=== PATIENT | female | born 1955 | race Caucasian/White ===

== ENCOUNTER → 2023-11-23 12:06 | Outpatient (REF) | payer MEDICARE, OTHER, SELFPAY ==
[2023-11-23 13:53] LABS: INR 2.65; PT 28.6 Sec (11.4-14.6)
== END ==
LOC: REG 12:06
PROVIDERS: ATTENDING PHYSICIAN Internal Medicine Cardiovascular Disease; FAMILY PHYSICIAN Family Medicine
DX: I48.0 Paroxysmal atrial fibrillation (principal); I48.91 Unspecified atrial fibrillation
CPT/HCPCS: 36415; 85610

== ENCOUNTER → 2023-12-15 09:10 | Outpatient (REF) | payer MEDICARE, OTHER, SELFPAY ==
[2023-12-15 10:41] LABS: INR 1.91; PT 21.7 Sec (11.4-14.6)
== END ==
LOC: REG 09:10
PROVIDERS: ATTENDING PHYSICIAN Internal Medicine Cardiovascular Disease; FAMILY PHYSICIAN Family Medicine
DX: I48.0 Paroxysmal atrial fibrillation (principal)
CPT/HCPCS: 36415; 85610

== ENCOUNTER → 2023-12-19 13:56 | Outpatient (REF) | payer MEDICARE, OTHER, SELFPAY | LOC: WDC 13:56 | PROVIDERS: ATTENDING PHYSICIAN Student in an Organized Health Care Education/Training Program | DX: R92.8 Other abnormal and inconclusive findings on diagnostic imaging of breast (principal) | CPT/HCPCS: 77061; 77065 ==

== ENCOUNTER → 2024-01-05 14:10 | Outpatient (REF) | payer MEDICARE, OTHER, SELFPAY | LOC: RAD 14:10 | PROVIDERS: ATTENDING PHYSICIAN Student in an Organized Health Care Education/Training Program | DX: R05.9 Cough, unspecified (principal) | CPT/HCPCS: 71046 ==

== ENCOUNTER → 2024-01-29 09:42 | Outpatient (REF) | payer MEDICARE, OTHER, SELFPAY ==
[2024-01-29 10:31] LABS: INR 1.91; PT 21.8 Sec (11.4-14.6)
== END ==
LOC: REG 09:42
PROVIDERS: ATTENDING PHYSICIAN Internal Medicine Cardiovascular Disease; FAMILY PHYSICIAN Family Medicine
DX: I48.0 Paroxysmal atrial fibrillation (principal); I48.91 Unspecified atrial fibrillation
CPT/HCPCS: 36415; 85610

== ENCOUNTER → 2024-02-13 10:26 | Outpatient (REF) | payer MEDICARE, OTHER, SELFPAY ==
[2024-02-13 11:33] LABS: INR 2.94; PT 30.6 Sec (11.4-14.6)
== END ==
LOC: REG 10:26
PROVIDERS: ATTENDING PHYSICIAN Student in an Organized Health Care Education/Training Program; FAMILY PHYSICIAN Family Medicine; REFERRING PHYSICIAN Internal Medicine Cardiovascular Disease
DX: I48.0 Paroxysmal atrial fibrillation (principal); R35.0 Frequency of micturition; R39.15 Urgency of urination
CPT/HCPCS: 36415; 85610

== ENCOUNTER → 2024-02-28 10:05 | Outpatient (REF) | payer MEDICARE, OTHER, SELFPAY ==
[2024-02-28 11:17] LABS: INR 2.13; PT 24.1 Sec (11.4-14.6)
[2024-02-28 11:21] LABS: Urine Albumin Negative (Neg - Trace); Urine Bilirubin Negative (Negative); Urine Character Clear (Clear); Urine Color Yellow; Urine Glucose Negative (Negative); Urine Ketone Negative (Negative); Urine Leukocyte 2+ (Negative); Urine Nitrite Negative (Negative); Urine Occult Blood Negative (Negative); Urine Urobilinogen Negative (Neg - 1+); Urine pH 6.5 (5.0-9.0)
[2024-02-28 12:02] LABS: HDL Cholesterol 71 mg/dl; LDL Cholesterol, Calculated 89 mg/dl; Total Cholesterol 188 mg/dl (50-199); Triglyceride 140 mg/dl (10-149); Very Low Density Lipoprotein 28 mg/dl (0-30)
[2024-02-28 12:17] LABS: Urine Squamous Cell >30 /LPF (Few)
[2024-02-28 12:18] LABS: Urine Red Blood Cell 0-2 /HPF (0-2)
== END ==
LOC: REG 10:05
PROVIDERS: ATTENDING PHYSICIAN Internal Medicine Cardiovascular Disease; FAMILY PHYSICIAN Family Medicine
DX: I48.0 Paroxysmal atrial fibrillation (principal); R35.0 Frequency of micturition; E78.2 Mixed hyperlipidemia
CPT/HCPCS: 36415; 80061; 81003; 81015; 85610; 87086

== ENCOUNTER → 2024-03-12 10:34 | Outpatient (REF) | payer MEDICARE, OTHER, SELFPAY ==
[2024-03-12 11:43] LABS: INR 1.63; PT 19.2 Sec (11.4-14.6)
== END ==
LOC: REG 10:34
PROVIDERS: ATTENDING PHYSICIAN Internal Medicine Cardiovascular Disease; FAMILY PHYSICIAN Student in an Organized Health Care Education/Training Program
DX: I48.0 Paroxysmal atrial fibrillation (principal)
CPT/HCPCS: 36415; 85610

== ENCOUNTER → 2024-03-22 10:58 | Outpatient (REF) | payer MEDICARE, OTHER, SELFPAY ==
[2024-03-22 12:14] LABS: INR 2.98; PT 30.9 Sec (11.4-14.6)
== END ==
LOC: REG 10:58
PROVIDERS: ATTENDING PHYSICIAN Internal Medicine Cardiovascular Disease; FAMILY PHYSICIAN Internal Medicine Cardiovascular Disease
DX: I48.0 Paroxysmal atrial fibrillation (principal)
CPT/HCPCS: 36415; 85610

== ENCOUNTER → 2024-04-05 10:14 | Outpatient (REF) | payer MEDICARE, OTHER, SELFPAY ==
[2024-04-05 11:13] LABS: INR 3.12
== END ==
LOC: REG 10:14
PROVIDERS: ATTENDING PHYSICIAN Internal Medicine Cardiovascular Disease; FAMILY PHYSICIAN Family Medicine
DX: I48.0 Paroxysmal atrial fibrillation (principal)
CPT/HCPCS: 36415; 85610

== ENCOUNTER → 2024-04-23 07:03 | Outpatient (REF) | payer MEDICARE, OTHER, SELFPAY ==
[2024-04-23 07:37] LABS: INR 3.03; PT 31.3 Sec (11.4-14.6)
== END ==
LOC: REG 07:03
PROVIDERS: ATTENDING PHYSICIAN Internal Medicine Cardiovascular Disease
DX: I48.0 Paroxysmal atrial fibrillation (principal)
CPT/HCPCS: 36415; 85610

== ENCOUNTER → 2024-05-23 16:57 | Outpatient (REF) | payer MEDICARE, OTHER, SELFPAY ==
[2024-05-23 17:51] LABS: INR 3.07; PT 32.2 Sec (11.4-14.6)
== END ==
LOC: REG 16:57
PROVIDERS: ATTENDING PHYSICIAN Internal Medicine Cardiovascular Disease; FAMILY PHYSICIAN Family Medicine
DX: I48.0 Paroxysmal atrial fibrillation (principal)
CPT/HCPCS: 36415; 85610

== ENCOUNTER → 2024-06-24 13:48 | Outpatient (REF) | payer MEDICARE, OTHER, SELFPAY ==
[2024-06-24 14:48] LABS: INR 2.38; PT 25.9 Sec (11.4-14.6)
== END ==
LOC: REG 13:48
PROVIDERS: ATTENDING PHYSICIAN Internal Medicine Cardiovascular Disease; FAMILY PHYSICIAN Family Medicine
DX: I48.0 Paroxysmal atrial fibrillation (principal)
CPT/HCPCS: 36415; 85610

== ENCOUNTER → 2024-07-24 08:16 | Outpatient (REF) | payer MEDICARE, OTHER, SELFPAY | LOC: HWWDC 08:16 | PROVIDERS: ATTENDING PHYSICIAN Student in an Organized Health Care Education/Training Program; REFERRING PHYSICIAN Surgery | DX: Z12.31 Encounter for screening mammogram for malignant neoplasm of breast (principal) | CPT/HCPCS: 77063; 77067 ==

== ENCOUNTER → 2024-07-25 08:13 | Outpatient (REF) | payer MEDICARE, OTHER, SELFPAY ==
[2024-07-25 09:50] LABS: INR 3.58; PT 36.3 Sec (11.4-14.6)
== END ==
LOC: REG 08:13
PROVIDERS: ATTENDING PHYSICIAN Internal Medicine Cardiovascular Disease; FAMILY PHYSICIAN Family Medicine
DX: I48.0 Paroxysmal atrial fibrillation (principal)
CPT/HCPCS: 36415; 85610

== ENCOUNTER → 2024-07-31 10:16 | Outpatient (REF) | payer MEDICARE, OTHER, SELFPAY ==
[2024-07-31 10:56] LABS: % Basophils 0.5 % (0-2); % Eosinophils 2.7 % (0-6); % Immature Granulocytes 0.3 % (0-0.5); % Lymphocytes 25.6 % (20.5-51.1); % Monocytes 10.4 % (1.7-9.3); % Neutrophils 60.5 % (42.2-75.2); Absolute Eosinophils 0.2 10^3/uL (0-0.7); Absolute Lymphocytes 1.5 10^3/uL (1.2-3.4); Absolute Monocytes 0.6 10^3/uL (0.1-0.6); Absolute Neutrophils 3.6 10^3/uL (1.4-6.5); Hemoglobin 14.4 g/dL (12.0-16.0); Mean Corp Hgb Conc. 33.5 g/dL (33.0-37.0); Mean Corpuscular Hgb 32.7 pg (27.0-31.0); Mean Corpuscular Volume 97.7 fL (81.0-99.0); Mean Platelet Volume 9.8 fL (7.4-10.4); Nucleated Red Blood Cells % 0 %; Platelet Count 245 10^3/uL (130-400); Red Cell Dist. Width 12.5 % (11.5-14.5)
[2024-07-31 11:21] LABS: PT 18.3 Sec (11.4-14.6)
[2024-07-31 11:35] LABS: INR 1.51
[2024-07-31 11:37] LABS: ALT (SGPT) 23 U/L (0-35); AST (SGOT) 32 U/L (14-36); Albumin 4.2 g/dl (3.5-5.0); Alkaline Phosphatase 85 U/L (38-126); Blood Urea Nitrogen 12 mg/dl (7-17); Calcium 9.4 mg/dl (8.4-10.2); Carbon Dioxide 28 mmol/L (22-30); Chloride 99 mmol/L (98-107); Glucose 117 mg/dl (70-99); Potassium 4.8 mmol/L (3.5-5.1); Sodium 139 mmol/L (135-145); Total Bilirubin 0.8 mg/dl (0.2-1.3); Total Protein 6.9 g/dl (6.3-8.2); eGFR > 60.00
[2024-07-31 11:54] LABS: TSH Reflex To Free T4 4.24 uIU/ml (0.47-4.68)
== END ==
LOC: REG 10:16
PROVIDERS: ATTENDING PHYSICIAN Internal Medicine Cardiovascular Disease; FAMILY PHYSICIAN Family Medicine
DX: I48.0 Paroxysmal atrial fibrillation (principal); R60.0 Localized edema; E78.2 Mixed hyperlipidemia; Q24.5 Malformation of coronary vessels; Z78.9 Other specified health status; Z98.890 Other specified postprocedural states; Z86.79 Personal history of other diseases of the circulatory system
CPT/HCPCS: 36415; 80053; 84443; 85025; 85610

== ENCOUNTER → 2024-08-02 07:31 | Outpatient (REF) | payer MEDICARE, OTHER, SELFPAY | LOC: HWRCS 07:31 | PROVIDERS: ATTENDING PHYSICIAN Internal Medicine Cardiovascular Disease; FAMILY PHYSICIAN Student in an Organized Health Care Education/Training Program | DX: R60.0 Localized edema (principal); I48.0 Paroxysmal atrial fibrillation; I10 Essential (primary) hypertension | CPT/HCPCS: 93306 ==

== ENCOUNTER → 2024-08-13 07:49 | Outpatient (REF) | payer MEDICARE, OTHER, SELFPAY ==
[2024-08-13 09:55] LABS: INR 2.27; PT 24.9 Sec (11.4-14.6)
== END ==
LOC: REG 07:49
PROVIDERS: ATTENDING PHYSICIAN Internal Medicine Cardiovascular Disease; FAMILY PHYSICIAN Family Medicine
DX: I48.0 Paroxysmal atrial fibrillation (principal)
CPT/HCPCS: 36415; 85610

== ENCOUNTER → 2024-08-30 09:48 | Outpatient (REF) | payer MEDICARE, OTHER, SELFPAY ==
[2024-08-30 11:54] LABS: INR 1.75; PT 20.7 Sec (11.4-14.6)
[2024-08-30 12:05] LABS: Glycohemoglobin (HgbA1c) 5.9 % (4.0-5.6)
== END ==
LOC: REG 09:48
PROVIDERS: ATTENDING PHYSICIAN Internal Medicine Cardiovascular Disease; REFERRING PHYSICIAN Student in an Organized Health Care Education/Training Program
DX: I48.0 Paroxysmal atrial fibrillation (principal); R73.9 Hyperglycemia, unspecified
CPT/HCPCS: 36415; 83036; 85610

== ENCOUNTER → 2024-09-19 08:03 | Outpatient (REF) | payer MEDICARE, OTHER, SELFPAY | LOC: RAD 08:03 | PROVIDERS: ATTENDING PHYSICIAN Internal Medicine Cardiovascular Disease; FAMILY PHYSICIAN Family Medicine | DX: R60.0 Localized edema (principal) | CPT/HCPCS: 93970 ==

== ENCOUNTER → 2024-09-27 08:46 | Outpatient (REF) | payer MEDICARE, OTHER, SELFPAY ==
[2024-09-27 09:44] LABS: PT 24.5 Sec (11.4-14.6)
== END ==
LOC: REG 08:46
PROVIDERS: ATTENDING PHYSICIAN Internal Medicine Cardiovascular Disease; FAMILY PHYSICIAN Family Medicine
DX: I48.0 Paroxysmal atrial fibrillation (principal)
CPT/HCPCS: 36415; 85610

== ENCOUNTER → 2024-10-29 13:23 | Outpatient (REF) | payer MEDICARE, OTHER, SELFPAY ==
[2024-10-29 14:52] LABS: INR 2.25; PT 24.9 Sec (11.4-14.6)
== END ==
LOC: REG 13:23
PROVIDERS: ATTENDING PHYSICIAN Internal Medicine Cardiovascular Disease
DX: I48.0 Paroxysmal atrial fibrillation (principal)
CPT/HCPCS: 36415; 85610

== ENCOUNTER → 2024-11-27 15:38 | Outpatient (REF) | payer MEDICARE, OTHER, SELFPAY ==
[2024-11-27 16:40] LABS: INR 3.64; PT 36.5 Sec (11.4-14.6)
== END ==
LOC: REG 15:38
PROVIDERS: ATTENDING PHYSICIAN Internal Medicine Cardiovascular Disease; FAMILY PHYSICIAN Family Medicine
DX: I48.0 Paroxysmal atrial fibrillation (principal)
CPT/HCPCS: 36415; 85610

== ENCOUNTER → 2024-12-06 11:50 | Outpatient (REF) | payer MEDICARE, OTHER, SELFPAY ==
[2024-12-06 12:44] LABS: INR 3.28; PT 33.2 Sec (11.4-14.6)
== END ==
LOC: REG 11:50
PROVIDERS: ATTENDING PHYSICIAN Internal Medicine Cardiovascular Disease; FAMILY PHYSICIAN Family Medicine
DX: I48.0 Paroxysmal atrial fibrillation (principal)
CPT/HCPCS: 36415; 85610

== ENCOUNTER → 2024-12-17 10:50 | Outpatient (REF) | payer MEDICARE, OTHER, SELFPAY ==
[2024-12-17 11:55] LABS: INR 1.36
== END ==
LOC: REG 10:50
PROVIDERS: ATTENDING PHYSICIAN Internal Medicine Cardiovascular Disease; FAMILY PHYSICIAN Family Medicine
DX: I48.0 Paroxysmal atrial fibrillation (principal)
CPT/HCPCS: 36415; 85610

== ENCOUNTER → 2024-12-25 11:40 | Outpatient (REF) | payer MEDICARE, OTHER, SELFPAY ==
[2024-12-25 17:56] LABS: INR 1.62; PT 19.8 Sec (11.4-14.6)
== END ==
LOC: REG 11:40
PROVIDERS: ATTENDING PHYSICIAN Internal Medicine Cardiovascular Disease
DX: I48.0 Paroxysmal atrial fibrillation (principal)
CPT/HCPCS: 36415; 85610

== ENCOUNTER → 2025-01-03 12:51 | Outpatient (REF) | payer MEDICARE, OTHER, SELFPAY ==
[2025-01-03 13:40] LABS: PT 27.8 Sec (11.4-14.6)
== END ==
LOC: REG 12:51
PROVIDERS: ATTENDING PHYSICIAN Internal Medicine Cardiovascular Disease; FAMILY PHYSICIAN Family Medicine
DX: I48.0 Paroxysmal atrial fibrillation (principal)
CPT/HCPCS: 36415; 85610

== ENCOUNTER → 2025-01-17 11:16 | Outpatient (REF) | payer MEDICARE, OTHER, SELFPAY ==
[2025-01-17 12:34] LABS: INR 2.39; PT 26.1 Sec (11.4-14.6)
== END ==
LOC: REG 11:16
PROVIDERS: ATTENDING PHYSICIAN Internal Medicine Cardiovascular Disease; FAMILY PHYSICIAN Family Medicine
DX: I48.0 Paroxysmal atrial fibrillation (principal)
CPT/HCPCS: 36415; 85610

== ENCOUNTER → 2025-01-30 11:54 | Outpatient (REF) | payer MEDICARE, OTHER, SELFPAY ==
[2025-01-30 12:55] LABS: PT 20.5 Sec (11.4-14.6)
== END ==
LOC: REG 11:54
PROVIDERS: ATTENDING PHYSICIAN Internal Medicine Cardiovascular Disease; FAMILY PHYSICIAN Family Medicine
DX: I48.0 Paroxysmal atrial fibrillation (principal)
CPT/HCPCS: 36415; 85610

== ENCOUNTER → 2025-03-12 07:52 | Outpatient (REF) | payer MEDICARE, OTHER, SELFPAY ==
[2025-03-12 09:05] LABS: INR 3.16; PT 32.8 Sec (11.4-14.6)
[2025-03-12 09:06] LABS: APTT 58.2 Sec (23.4-35.0)
[2025-03-12 09:37] LABS: ALT (SGPT) 25 U/L (0-35); AST (SGOT) 29 U/L (14-36); Alkaline Phosphatase 91 U/L (38-126); Blood Urea Nitrogen 15 mg/dl (7-17); Calcium 8.9 mg/dl (8.4-10.2); Carbon Dioxide 27 mmol/L (22-30); Chloride 106 mmol/L (98-107); Glucose 109 mg/dl (70-99); HDL Cholesterol 55 mg/dl; LDL Cholesterol, Calculated 88 mg/dl; Potassium 4.7 mmol/L (3.5-5.1); Sodium 140 mmol/L (135-145); Total Bilirubin 0.5 mg/dl (0.2-1.3); Total Cholesterol 176 mg/dl (50-199); Total Protein 6.5 g/dl (6.3-8.2); Triglyceride 167 mg/dl (10-149); Very Low Density Lipoprotein 33 mg/dl (0-30); eGFR > 60.00
[2025-03-12 10:00] LABS: Glycohemoglobin (HgbA1c) 5.9 % (4.0-5.6)
== END ==
LOC: REG 07:52
PROVIDERS: ATTENDING PHYSICIAN Internal Medicine Cardiovascular Disease; FAMILY PHYSICIAN Student in an Organized Health Care Education/Training Program
DX: I48.0 Paroxysmal atrial fibrillation (principal); I10 Essential (primary) hypertension; G25.0 Essential tremor; E78.2 Mixed hyperlipidemia; Z79.01 Long term (current) use of anticoagulants; E66.811 Obesity, class 1; R73.03 Prediabetes
CPT/HCPCS: 36415; 80053; 80061; 83036; 85610; 85730

== ENCOUNTER → 2025-03-19 08:36 | Outpatient (REF) | payer MEDICARE, OTHER, SELFPAY ==
[2025-03-19 09:23] LABS: INR 2.14; PT 24.4 Sec (11.4-14.6)
== END ==
LOC: REG 08:36
PROVIDERS: ATTENDING PHYSICIAN Internal Medicine Cardiovascular Disease; FAMILY PHYSICIAN Family Medicine
DX: I48.0 Paroxysmal atrial fibrillation (principal)
CPT/HCPCS: 36415; 85610

== ENCOUNTER → 2025-04-03 06:52 | Outpatient (REF) | payer MEDICARE, OTHER, SELFPAY ==
[2025-04-03 07:23] LABS: PT 26.6 Sec (11.4-14.6)
== END ==
LOC: REG 06:52
PROVIDERS: ATTENDING PHYSICIAN Internal Medicine Cardiovascular Disease; FAMILY PHYSICIAN Family Medicine
DX: I48.0 Paroxysmal atrial fibrillation (principal)
CPT/HCPCS: 36415; 85610

== ENCOUNTER → 2025-04-28 07:06 | Outpatient (REF) | payer MEDICARE, OTHER, SELFPAY ==
[2025-04-28 08:21] LABS: INR 3.41; PT 34.2 Sec (11.4-14.6)
== END ==
LOC: REG 07:06
PROVIDERS: ATTENDING PHYSICIAN Internal Medicine Cardiovascular Disease; FAMILY PHYSICIAN Family Medicine
DX: I48.0 Paroxysmal atrial fibrillation (principal)
CPT/HCPCS: 36415; 85610

== ENCOUNTER → 2025-05-21 07:54 | Outpatient (REF) | payer MEDICARE, OTHER, SELFPAY ==
[2025-05-21 09:21] LABS: INR 1.77; PT 21.1 Sec (11.4-14.6)
== END ==
LOC: REG 07:54
PROVIDERS: ATTENDING PHYSICIAN Internal Medicine Cardiovascular Disease; FAMILY PHYSICIAN Family Medicine
DX: I48.0 Paroxysmal atrial fibrillation (principal)
CPT/HCPCS: 36415; 85610

== ENCOUNTER → 2025-05-30 08:30 | Outpatient (REF) | payer MEDICARE, OTHER, SELFPAY ==
[2025-05-30 09:44] LABS: INR 2.32; PT 25.6 Sec (11.4-14.6)
== END ==
LOC: REG 08:30
PROVIDERS: ATTENDING PHYSICIAN Internal Medicine Cardiovascular Disease; FAMILY PHYSICIAN Family Medicine
DX: I48.0 Paroxysmal atrial fibrillation (principal)
CPT/HCPCS: 36415; 85610

== ENCOUNTER → 2025-06-10 08:25 | Outpatient (REF) | payer MEDICARE, OTHER, SELFPAY ==
[2025-06-10 09:37] LABS: INR 4.13; PT 39.5 Sec (11.4-14.6)
== END ==
LOC: REG 08:25
PROVIDERS: ATTENDING PHYSICIAN Internal Medicine Cardiovascular Disease; FAMILY PHYSICIAN Family Medicine
DX: I48.0 Paroxysmal atrial fibrillation (principal)
CPT/HCPCS: 36415; 85610

== ENCOUNTER → 2025-07-11 08:31 | Outpatient (REF) | payer MEDICARE, OTHER, SELFPAY ==
[2025-07-11 10:14] LABS: INR 2.18; PT 24.4 Sec (11.4-14.6)
== END ==
LOC: REG 08:31
PROVIDERS: ATTENDING PHYSICIAN Internal Medicine Cardiovascular Disease; FAMILY PHYSICIAN Family Medicine
DX: I48.0 Paroxysmal atrial fibrillation (principal)
CPT/HCPCS: 36415; 85610

== ENCOUNTER → 2025-07-29 09:36 | Outpatient (REF) | payer MEDICARE, OTHER, SELFPAY ==
[2025-07-29 11:08] LABS: INR 2.10; PT 23.7 Sec (11.4-14.6)
== END ==
LOC: REG 09:36
PROVIDERS: ATTENDING PHYSICIAN Internal Medicine Cardiovascular Disease
DX: I48.0 Paroxysmal atrial fibrillation (principal)
CPT/HCPCS: 36415; 85610

== ENCOUNTER → 2025-08-15 08:48 | Outpatient (REF) | payer MEDICARE, OTHER, SELFPAY ==
[2025-08-15 09:49] LABS: INR 2.14; PT 24.0 Sec (11.4-14.6)
== END ==
LOC: REG 08:48
PROVIDERS: ATTENDING PHYSICIAN Internal Medicine Cardiovascular Disease; FAMILY PHYSICIAN Family Medicine
DX: I48.0 Paroxysmal atrial fibrillation (principal)
CPT/HCPCS: 36415; 85610

== ENCOUNTER → 2025-09-10 15:33 | Outpatient (REF) | payer MEDICARE, OTHER, SELFPAY | LOC: WDC 15:33 | PROVIDERS: ATTENDING PHYSICIAN Physician Assistant Medical | DX: Z12.31 Encounter for screening mammogram for malignant neoplasm of breast (principal) | CPT/HCPCS: 77063; 77067 ==

== ENCOUNTER → 2025-09-26 10:50 | Outpatient (REF) | payer MEDICARE, OTHER, SELFPAY ==
[2025-09-26 12:24] LABS: INR 2.40; PT 26.3 Sec (11.4-14.6)
== END ==
LOC: REG 10:50
PROVIDERS: ATTENDING PHYSICIAN Internal Medicine Cardiovascular Disease
DX: I48.0 Paroxysmal atrial fibrillation (principal)
CPT/HCPCS: 36415; 85610